=== PATIENT | male | born 1950 | race Caucasian/White ===

== ENCOUNTER 2021-01-17 10:58 | Emergency (ER) | payer MEDICARE, BC, SELFPAY ==
[2021-01-17 11:34] VITALS: BP 157/82; PULSE 92; RESP 16; TEMP 36.2; O2SAT 96
--- NOTE | 2021-01-17 11:42 | ED.RECABL ---
HPI - Recheck/Abnormal Lab/Rx General Chief Complaint: Recheck/Abnormal Lab/Rx Stated Complaint: HTN Time Seen by Provider: 01/17/21 11:41 History of Present Illness HPI narrative: 70 yo male w/ h/o htn presents to the ED for the same. He rpeorts that he has been stable on 5 BP meds for quite some time. He is scheduled to follow-up with his PCP tomorrow, so he wanted to check his BP. When he checked it this morning it was high. He then checked it a few more times and each time it got higher. It peaked at about 170 systolic. He denies any symptoms, but was concerned about how high it was. Related Data Allergies Allergy/AdvReac Type Severity Reaction Status Date / Time No Known Allergies Allergy Unverified 11/17/17 11:05 Review of Systems Review of Systems: All systems reviewed & are unremarkable except as noted in HPI and below Constitutional: Constitutional: Denies fever(s) and Denies weakness Eyes: Eyes: Denies change in vision Cardiovascular: Cardiovascular: Denies chest pain Respiratory: Respiratory: Denies dyspnea Gastrointestinal: Gastrointestinal: Denies abdominal pain and Denies nausea Musculoskeletal: Musculoskeletal: Denies back pain Neurologic: Denies confusion, Denies headache(s) and Denies weakness PMFSH Past Medical History Medical History (Updated 01/17/21 @ 13:14 by Toni Tobar MD) HTN (hypertension) Social History Social History (Updated 01/17/21 @ 13:15 by Toni Tobar MD) Smoking status: Never smoker Living arrangements: with family Gender identity (if verbalized by the patient): Male Sexual Orientation (if Verbalized by the Patient): Straight or Heterosexual Exam Const: General: healthy appearing, no acute distress and alert Orientation/consciousness: patient oriented x3 HENMT: Head: normal to inspection Neck: Neck: normal visual inspection Resp: Effort & Inspection: normal respiratory effort Auscultation: clear to auscultation bilaterally, no rales, no rhonchi and no wheezes Cardio: Jugular venous distension: no JVD Rate: regular rate Rhythm: regular rhythm Heart sounds: no murmurs Skin: General skin exam: normal color Neuro: General: patient oriented x3, moves all extremities, no focal motor deficits and CN's II-XI intact bilaterally Speech: normal speech Gait exam (Neuro): Normal gait present Extrem: General: normal to inspection and no edema Psych: Appearance: well kempt Affect: normal affect Course Vital Signs Vital signs: Vital Signs Temperature 36.2 C L 01/17/21 11:34 Pulse Rate 92 01/17/21 11:34 Respiratory Rate 16 01/17/21 11:34 Blood Pressure 157/82 H 01/17/21 11:34 Pulse Oximetry 96 01/17/21 11:34 Temperature 36.2 C L 01/17/21 11:34 Pulse Rate 78 01/17/21 12:34 Respiratory Rate 16 01/17/21 12:34 Blood Pressure 158/81 H 01/17/21 12:34 Pulse Oximetry 100 01/17/21 12:34 MDM - Recheck/Abnormal Lab/Rx MDM Narrative Medical decision making narrative: No sign or symptoms indicating end organ damage. BP improved on its own. He has follow up tomorrow Medical Records Attestation: I reviewed the patient's medical records. Discharge Plan Discharge Clinical Impression: HTN (hypertension) Qualifiers: Hypertension type: primary hypertension Qualified Code(s): I10 - Essential (primary) hypertension Patient Disposition: Home, Self-Care Condition: Stable Instructions: Chronic Hypertension (ED) Follow-up/Referrals: PHYSICIAN NOT ON STAFF,NONSTAFF [Primary Care Provider] -
[2021-01-17 11:48] VITALS: BP 172/88; PULSE 71; RESP 14; RESP 16; O2SAT 100; O2SAT 96
[2021-01-17 12:34] VITALS: BP 158/81; PULSE 78; RESP 16; O2SAT 100
== END 2021-01-17 12:36 | disposition home or self-care (01) ==
PROVIDERS: Emergency Provider Emergency Medicine
DX: I10 Essential (primary) hypertension (principal)
CPT/HCPCS: 99281